=== PATIENT | female | born 1960 ===

== ENCOUNTER 2017-04-18 22:42 | Emergency (ER) | payer OTHER ==
[2017-04-18] MEDS ORDERED: CYMBALTA30 M1 PO (23:19)
[2017-04-18] MEDS ORDERED: LASIX20 M1 PO (23:19)
[2017-04-18] MEDS ORDERED: ULTRAM50 M1 PO (23:20)
[2017-04-18] MEDS ORDERED: POTASSIUM CHLO10 ME1 PO (23:20)
[2017-04-18] MEDS ORDERED: XALATAN2.5 M1 EACH EYE (23:22)
== END 2017-04-19 00:54 ==
LOC: EDMED 22:42
DX: H53.8 Other visual disturbances (principal); H40.9 Unspecified glaucoma; Z98.890 Other specified postprocedural states